=== PATIENT | female | born 1980 | race Asian ===

== ENCOUNTER 2019-04-10 14:02 | Emergency (ER) | payer BC ==
[~2019-04-10] VITALS: Ht 172.7 cm; Wt 127.0 kg
[~2019-04-10 14:02] MED LIST: LISI20TA11 PO
[2019-04-10 14:49] LABS: PLATELET COUNT 160 K/uL (152-353)
[2019-04-10 14:55] LABS: POTASSIUM 3.6 mmol/L (3.6-5.2)
[2019-04-10 15:58] VITALS: BP 148/85; TEMP 97.8
== END 2019-04-10 15:58 | disposition home or self-care (01) ==
LOC: ED 14:02
PROVIDERS: Family Medicine
DX: J40 Bronchitis, not specified as acute or chronic (principal); J30.9 Allergic rhinitis, unspecified; F17.210 Nicotine dependence, cigarettes, uncomplicated
CPT/HCPCS: 36415; 80053; 85027; 87651; 94664; 99283; J1100

== ENCOUNTER 2021-01-31 09:18 | Outpatient (CLI) | payer OTHER | END 2021-01-31 21:27 | disposition home or self-care (01) | LOC: MAMMO 09:18 | PROVIDERS: ATTEND Nurse Practitioner | DX: Z12.31 Encounter for screening mammogram for malignant neoplasm of breast (principal) ==

== ENCOUNTER 2022-07-12 16:35 | Emergency (ER) | payer OTHER ==
[~2022-07-12] VITALS: Ht 172.7 cm; Wt 145.2 kg
[2022-07-12 20:55] VITALS: BP 124/71; TEMP 98.1
== END 2022-07-12 21:00 | disposition home or self-care (01) ==
LOC: ED 16:35
DX: M51.26 Other intervertebral disc displacement, lumbar region (principal); M54.59 Other low back pain
CPT/HCPCS: 81002; 96372; 99283; J1100; J1200; J1885; J2175; J2550

== ENCOUNTER 2022-08-08 15:25 | Emergency (ER) | payer OTHER ==
[~2022-08-08] VITALS: Ht 172.7 cm; Wt 145.2 kg
[2022-08-08 17:00] VITALS: BP 129/88
== END 2022-08-08 17:22 | disposition home or self-care (01) ==
LOC: ED 15:25
DX: T78.02XA Anaphylactic reaction due to shellfish (crustaceans), initial encounter (principal); X58.XXXA Exposure to other specified factors, initial encounter; Y92.89 Other specified places as the place of occurrence of the external cause
CPT/HCPCS: 99284; J0171; J2405

== ENCOUNTER 2022-08-11 15:23 | Outpatient (CLI) | payer OTHER | END 2022-08-11 19:07 | disposition home or self-care (01) | LOC: MAMMO 15:23 | PROVIDERS: ATTEND Nurse Practitioner | DX: Z12.31 Encounter for screening mammogram for malignant neoplasm of breast (principal) ==

== ENCOUNTER 2023-06-09 13:25 | Outpatient (CLI) | payer OTHER | END 2023-06-09 20:25 | disposition home or self-care (01) | LOC: RAD 13:25 | PROVIDERS: ATTEND Nurse Practitioner | DX: M54.16 Radiculopathy, lumbar region (principal) ==